=== PATIENT | female | born 1930 | race Caucasian/White ===

== ENCOUNTER 2017-10-22 10:56 | Outpatient (CLI) | payer OTHER | END 2017-10-22 17:00 | disposition home or self-care (01) | LOC: HPC 10:56 | DX: K76.89 Other specified diseases of liver (principal); I12.9 Hypertensive chronic kidney disease with stage 1 through stage 4 chronic kidney disease, or unspecified chronic kidney disease; N18.3 Chronic kidney disease, stage 3 (moderate); M17.0 Bilateral primary osteoarthritis of knee | CPT/HCPCS: G0463 ==